=== PATIENT | female | born 1975 | race Two or more races ===

== ENCOUNTER 2023-05-14 09:50 | Emergency (ER) | payer OTHER ==
[~2023-05-14] VITALS: Ht 170.2 cm; Wt 88.8 kg
[2023-05-14 10:52] VITALS: BP 152/87; PULSE 87; RESP 18; TEMP 97.8; O2SAT 97
[2023-05-14] MEDS ORDERED: CARI350T27 PO ×3 (11:15→13:33)
[2023-05-14] MEDS ORDERED: CARISOPRODOL 350 MG TAB PO ONE (11:15)
== END 2023-05-14 11:26 | disposition home or self-care (01) ==
LOC: ER 09:50
DX: M54.42 Lumbago with sciatica, left side (principal); G89.29 Other chronic pain; F17.210 Nicotine dependence, cigarettes, uncomplicated; Z76.0 Encounter for issue of repeat prescription; Z98.890 Other specified postprocedural states; Z79.899 Other long term (current) drug therapy